=== PATIENT | male | born 1945 | race Caucasian/White ===

== ENCOUNTER 2016-09-09 19:31 | Emergency (ER) | payer OTHER | END 2016-09-09 21:50 | disposition home or self-care (01) | LOC: ER 19:31 | DX: S39.012A Strain of muscle, fascia and tendon of lower back, initial encounter (principal); E11.9 Type 2 diabetes mellitus without complications; I10 Essential (primary) hypertension; F17.210 Nicotine dependence, cigarettes, uncomplicated; Z95.1 Presence of aortocoronary bypass graft; Z79.82 Long term (current) use of aspirin; Z79.84 Long term (current) use of oral hypoglycemic drugs; X50.9XXA Other and unspecified overexertion or strenuous movements or postures, initial encounter ==

== ENCOUNTER 2016-12-02 21:40 | Emergency (ER) | payer OTHER | END 2016-12-03 01:30 | disposition home or self-care (01) | LOC: ER 21:40 | DX: E86.0 Dehydration (principal); N28.9 Disorder of kidney and ureter, unspecified; I10 Essential (primary) hypertension; F17.210 Nicotine dependence, cigarettes, uncomplicated; Z95.1 Presence of aortocoronary bypass graft; Z91.041 Radiographic dye allergy status; Z79.82 Long term (current) use of aspirin; Z79.84 Long term (current) use of oral hypoglycemic drugs; Z79.899 Other long term (current) drug therapy | CPT/HCPCS: 36415; 96360 ==